=== PATIENT | female | born 1980 | race Caucasian/White ===

== ENCOUNTER 2016-07-31 16:10 | Emergency (ER) | payer MEDICAID ==
[~2016-07-31] VITALS: Ht 162.6 cm; Wt 59.0 kg
[~2016-07-31 16:10] MED LIST: DOCU-30 PO; HYDR-3138 PO; IBUP-1222 PO; IBUP800T PO; OXYC-302 PO; none per pt
[2016-07-31] MEDS ORDERED: SODIUM CHLORIDE FLUSH 10ML SYR IVF ONE (18:00)
[2016-07-31] MEDS ORDERED: SODIUM CHLORIDE 0.9% 1,000ML IVBOLUS ONE (18:00)
[2016-07-31] MEDS ORDERED: ONDANSETRON 2MG/ML, 2ML IVPush ONE (18:00)
[2016-07-31] MEDS ORDERED: MORPHINE SULFATE 4 MG/ML, 1ML IVPush PRN (18:00)
[2016-07-31] MEDS ORDERED: MORPHINE SULFATE 4 MG/ML, 1ML ONE (18:12)
[2016-07-31] MEDS ORDERED: ONDANSETRON 2MG/ML, 2ML ONE (18:12)
[2016-07-31 18:24] LABS: ASPARTATE AMINO TRANSFERASE 94 U/L (15-37); BLOOD UREA NITROGEN 11 mg/dL (7-18)
[2016-07-31 18:26] LABS: HEMOGLOBIN 14.3 g/dL (11.7-16.4)
[2016-07-31] MEDS ORDERED: CEFDINIR 300 MG CAPSULE PO ONE (20:30)
[2016-07-31] MEDS ORDERED: PHENAZOPYRIDINE 200 MG TABLET ONE (20:30)
[2016-07-31] MEDS ORDERED: PHENAZOPYRIDINE 200 MG TABLET PO ONE (20:30)
[2016-07-31 20:51] VITALS: BP 123/72
== END 2016-07-31 21:18 ==
LOC: ED 18:10
DX: N30.00 Acute cystitis without hematuria (principal); Z90.49 Acquired absence of other specified parts of digestive tract; Z90.710 Acquired absence of both cervix and uterus; F15.10 Other stimulant abuse, uncomplicated; F12.10 Cannabis abuse, uncomplicated
CPT/HCPCS: 36415; 76830; 80053; 81001; 83690; 85025; 87077; 87086; 87186; 96361; 96374; 96375; 99285; J2405; J7030

== ENCOUNTER 2016-10-18 15:22 | Emergency (ER) | payer MEDICAID ==
[~2016-10-18] VITALS: Ht 162.6 cm; Wt 69.4 kg
[2016-10-18] MEDS ORDERED: SODIUM CHLORIDE FLUSH 10ML SYR IVF ONE (16:00)
[2016-10-18 16:13] LABS: ASPARTATE AMINO TRANSFERASE 127 U/L (15-37); BLOOD UREA NITROGEN 12 mg/dL (7-18)
[2016-10-18 17:43] VITALS: BP 121/61
[2016-10-18] MEDS ORDERED: OMNIPAQUE 350 MG/ML, 100ML BOTTLE ONE (18:18)
[2016-10-20 09:50] LABS: HEPATITIS C VIRUS ANTIBODY Nonreactive (Nonreactive)
== END 2016-10-18 17:44 | disposition home or self-care (01) ==
LOC: ED 16:13
DX: R10.32 Left lower quadrant pain (principal); R94.5 Abnormal results of liver function studies; Z90.710 Acquired absence of both cervix and uterus; Z90.49 Acquired absence of other specified parts of digestive tract
CPT/HCPCS: 36415; 74177; 80053; 80074; 81001; 83690; 85025; 87086; 99285; Q9967

== ENCOUNTER 2018-01-26 10:52 | Emergency (ER) | payer MEDICAID ==
[~2018-01-26] VITALS: Ht 162.6 cm; Wt 86.0 kg
[~2018-01-26 10:52] MED LIST changes: +DOCU-131 PO; -DOCU-30 PO; -HYDR-3138 PO; +HYDR-3237 PO; +IBUP-1223 PO; -IBUP800T PO
[2018-01-26] MEDS ORDERED: ONDANSETRON ODT 4 MG ONE (11:52)
[2018-01-26] MEDS ORDERED: HYDROmorphone 2 MG/ML, 1ML ONE (11:52)
[2018-01-26] MEDS ORDERED: ONDANSETRON ODT 4 MG PO ONE (12:00)
[2018-01-26] MEDS ORDERED: HYDROmorphone 2 MG/ML, 1ML IM ONE (12:00)
[2018-01-26 12:04] LABS: BASOPHILS # (AUTO) 0.05 x10^3/uL (0-0.1); BASOPHILS % (AUTO) 1 % (0-1); EOSINOPHILS # (AUTO) 0.12 x10^3/uL (0-0.4); EOSINOPHILS % (AUTO) 1 % (1-7); LYMPHOCYTES # (AUTO) 2.76 x10^3/uL (1-3.4); LYMPHOCYTES % (AUTO) 32 % (22-44); MD NO; MEAN CORPUSCULAR HEMOGLOBIN 30.7 pg (27.0-34.8); MEAN CORPUSCULAR VOLUME 90.2 fL (80-100); MEAN PLATELET VOLUME 8.2 fL (7.4-10.4); MONOCYTES # (AUTO) 0.57 x10^3/uL (0.2-0.8); MONOCYTES % (AUTO) 7 % (2-9); NEUTROPHILS # (AUTO) 5.08 x10^3/uL (1.8-6.8); NEUTROPHILS % (AUTO) 59 % (42-75); PLATELET COUNT 256 x10^3/uL (130-400); RED BLOOD COUNT 4.75 x10^6/uL (3.82-5.3); RED CELL DISTRIBUTION WIDTH 13.8 % (9.6-15.2)
[2018-01-26 12:16] LABS: MICROSCOPIC AUTO
[2018-01-26 12:21] LABS: CULTURE INDICATED? YES
[2018-01-26 12:22] LABS: ALBUMIN 3.6 g/dL (3.4-5.0); ANION GAP 7 mmol/L (5-15); CALCIUM 8.4 mg/dL (8.5-10.1); CHLORIDE 107 mmol/L (98-107)
[2018-01-26 12:25] LABS: ALANINE AMINOTRANSFERASE 17 U/L (12-78); ALKALINE PHOSPHATASE 71 U/L (45-117); BILIRUBIN,TOTAL 0.7 mg/dL (0.2-1.0); CREATININE 0.68 mg/dL (0.55-1.02); TOTAL PROTEIN 7.8 g/dL (6.4-8.2)
[2018-01-26] MEDS ORDERED: SODIUM CHLORIDE FLUSH 10ML SYR IVF ONE (12:30)
[2018-01-26 13:14] VITALS: BP 108/70
== END 2018-01-26 13:18 | disposition home or self-care (01) ==
LOC: ED 13:12
DX: N39.0 Urinary tract infection, site not specified (principal); R00.1 Bradycardia, unspecified; Z90.710 Acquired absence of both cervix and uterus; Z90.49 Acquired absence of other specified parts of digestive tract; Z90.721 Acquired absence of ovaries, unilateral
CPT/HCPCS: 36415; 76830; 80053; 81001; 85025; 87077; 87086; 87186; 96372; 99285; J1170; Q0162

== ENCOUNTER 2018-03-25 09:05 | Emergency (ER) | payer MEDICAID ==
[~2018-03-25] VITALS: Ht 162.6 cm; Wt 88.7 kg
[2018-03-25] MEDS ORDERED: IBUPROFEN 200 MG TABLET PO ONE (09:30)
[2018-03-25] MEDS ORDERED: IBUPROFEN 600 MG TABLET ONE (09:30)
[2018-03-25 10:11] LABS: RAPID INFLUENZA A Negative (Negative); RAPID INFLUENZA B Negative (Negative)
[2018-03-25 10:43] VITALS: BP 121/83
== END 2018-03-25 10:52 | disposition home or self-care (01) ==
LOC: ED 10:50
DX: J00 Acute nasopharyngitis [common cold] (principal); B97.89 Other viral agents as the cause of diseases classified elsewhere; R07.89 Other chest pain; J11.1 Influenza due to unidentified influenza virus with other respiratory manifestations
CPT/HCPCS: 71046; 87400; 99284

== ENCOUNTER 2018-10-12 21:10 | Emergency (ER) | payer MEDICAID ==
[~2018-10-12] VITALS: Ht 162.6 cm; Wt 88.0 kg
--- NOTE | 2018-10-12 21:48 | NUR ---
PT HERE FOR ETOH INTOXICATION. VSS. PT RESTING. PT HAS NO OTHER COMPLAINTS. CALL LIGHT IN REACH
--- NOTE | 2018-10-12 22:48 | NUR ---
PT SLEEPING. EVEN RISE AND FALL OF CHEST OBSERVED. VSS. CALL LIGHT IN REACH
--- NOTE | 2018-10-12 23:46 | NUR ---
PT SLEEPING. PT AROUSES TO VOICE. PT HAS NO NEEDS AT THIS TIME. CALL LIGHT IN REACH
--- NOTE | 2018-10-13 00:41 | NUR ---
PT AROUSES TO VOICE BUT STILL UNABLE TO AMBULATE. VSS. PT BACK IN BED AND SLEEPING
[2018-10-13 01:38] VITALS: BP 104/60
--- NOTE | 2018-10-13 01:38 | NUR ---
Patient given discharge instructions and they have confirmed that they understand the instructions. Patient ambulatory with steady gait.
== END 2018-10-13 01:42 | disposition home or self-care (01) ==
LOC: ED 21:51
DX: F10.220 Alcohol dependence with intoxication, uncomplicated (principal); F17.200 Nicotine dependence, unspecified, uncomplicated; Z90.49 Acquired absence of other specified parts of digestive tract; Z90.710 Acquired absence of both cervix and uterus
CPT/HCPCS: 99283

== ENCOUNTER 2019-06-20 09:57 | Emergency (ER) | payer MEDICAID ==
[~2019-06-20] VITALS: Ht 162.6 cm; Wt 91.9 kg
[2019-06-20 10:24] VITALS: BP 159/92
--- NOTE | 2019-06-20 10:40 | NUR ---
PT WITH C/O LLQ ABD PAIN, PT STATES SHE HAS CHRONIC PAIN FOR WHICH SHE WILL TAKE BENEDRYL FOR. PT ALSO WITH CHRONIC DIARRHEA. PT STATES SHE HAS SEEN GI, HAD A COLONOSCOPY WITH POLYP REMOVAL, PT STATES SHE CONTINUES TO HAVE DIARRHEA. NO C/O N/V
--- NOTE | 2019-06-20 10:51 | NUR ---
PT AMBULATED TO BR WITH STEADY GAIT. UA COLLECTED AND SENT, PT UNABLE AT THIS TIME TO PROVIDE STOOL SAMPLE.
[2019-06-20 11:17] LABS: MICROSCOPIC INDICATED
[2019-06-20 11:35] LABS: CULTURE INDICATED? NO
[2019-06-20 11:50] LABS: BASOPHILS # (AUTO) 0.04 x10^3/uL (0-0.1); BASOPHILS % (AUTO) 1 % (0-1); EOSINOPHILS # (AUTO) 0.08 x10^3/uL (0-0.4); EOSINOPHILS % (AUTO) 1 % (1-7); LYMPHOCYTES # (AUTO) 2.59 x10^3/uL (1-3.4); LYMPHOCYTES % (AUTO) 33 % (22-44); MD NO; MEAN CORPUSCULAR HGB CONC 33.8 g/dL (32.4-35.8); MEAN CORPUSCULAR VOLUME 94.5 fL (80-100); MEAN PLATELET VOLUME 7.5 fL (7.4-10.4); MONOCYTES # (AUTO) 0.44 x10^3/uL (0.2-0.8); MONOCYTES % (AUTO) 6 % (2-9); NEUTROPHILS # (AUTO) 4.74 x10^3/uL (1.8-6.8); NEUTROPHILS % (AUTO) 60 % (42-75); PLATELET COUNT 267 x10^3/uL (130-400); RED BLOOD COUNT 4.59 x10^6/uL (3.82-5.3); RED CELL DISTRIBUTION WIDTH 14.4 % (9.6-15.2)
[2019-06-20 11:54] LABS: ALBUMIN 3.8 g/dL (3.4-5.0); ANION GAP 12 mmol/L (5-15); CALCIUM 8.8 mg/dL (8.5-10.1); CHLORIDE 108 mmol/L (98-107)
[2019-06-20] MEDS ORDERED: KETOROLAC 30 MG/1 ML ONE (12:41)
--- NOTE | 2019-06-20 12:46 | NUR ---
PT MEDICATED PER MAR WITH PAIN MED PER REQUEST, SPOKE WITH MD REGARDING PT STATUS. ANTICIPATE DC HOME
[2019-06-20] MEDS ORDERED: KETOROLAC 30 MG/1 ML IM/IV ONE (13:00)
== END 2019-06-20 13:15 | disposition home or self-care (01) ==
LOC: ED 13:00
DX: R10.84 Generalized abdominal pain (principal); R19.7 Diarrhea, unspecified
CPT/HCPCS: 36415; 80048; 81001; 82040; 85025; 96372; 99283; J1885

== ENCOUNTER 2019-11-20 05:34 | Emergency (ER) | payer MEDICAID ==
--- NOTE | 2019-11-20 05:37 | NUR ---
ATTEMPT TO CALL PT FROM LOBBY TO TRIAGE UNSUCESSFUL. PT NIL X 1.
[2019-11-20 05:39] VITALS: BP 162/112
[2019-11-20] MEDS ORDERED: ONDANSETRON ODT 4 MG PO ONE (06:00)
[2019-11-20] MEDS ORDERED: HYDROmorphone 1 MG/ML, 1ML INJ IM ONE (06:00)
[2019-11-20] MEDS ORDERED: ONDANSETRON ODT 4 MG ONE (06:00)
[2019-11-20] MEDS ORDERED: HYDROmorphone 1 MG/ML, 1ML INJ ONE (06:00)
--- NOTE | 2019-11-20 06:17 | NUR ---
DR GUY IN TO DO ANAL EXAM. REVEALS SEVERAL IMFLAMMED HEMMROIDS.
--- NOTE | 2019-11-20 06:24 | NUR ---
MED REQUEST TUBED TO PHARMACY
[2019-11-20] MEDS ORDERED: HYDROCORTISONE 25 MG SUPP PR ONE (06:30)
== END 2019-11-20 06:50 | disposition home or self-care (01) ==
LOC: ED 06:05
DX: K64.8 Other hemorrhoids (principal); K64.4 Residual hemorrhoidal skin tags; F17.200 Nicotine dependence, unspecified, uncomplicated
CPT/HCPCS: 96372; 99283; J1170; Q0162